=== PATIENT | female | born 1985 | race African-American/Black ===

== ENCOUNTER 2021-02-19 14:09 | Emergency (ER) | payer OTHER ==
[2021-02-19] MEDS ORDERED: Acetaminophen 500 MG TAB ONE (14:51)
[2021-02-20 12:27] LABS: SARS-CoV-2 PCR by NAA Not Detected (NotDetected)
== END 2021-02-19 14:55 | disposition home or self-care (01) ==
LOC: NAV ERS 14:09
DX: R51.9 Headache, unspecified (principal); M79.10 Myalgia, unspecified site; Z20.822 Contact with and (suspected) exposure to COVID-19
CPT/HCPCS: 99283; U0003; U0005